=== PATIENT | male | born 1975 | race Caucasian/White ===

== ENCOUNTER → 2020-08-27 10:01 | Outpatient (CLI) | payer BC ==
[~2020-08-27] VITALS: Ht 182.9 cm; Wt 90.7 kg
[~2020-08-27 10:01] MED LIST: ALBUTEROL SULF8.5 GM INH; GABAPENTIN100 MG PO; HYDROCODON-ACE1 EA10 PO; HYDROCODON-ACE1 EAC7 PO; MEDROL DOSE PACK4 MG PO; MOBIC7.5 MG PO; ZANAFLEX6 MG PO
[2020-08-27 11:04] LABS: BASOPHILS 0.4 % (0-2); EOSINOPHILS 3.1 % (0-7); HEMATOCRIT 50.2 % (42.0-54.0); HEMOGLOBIN 17.6 g/dL (13.5-17.5); IMMATURE GRANULOCYTES 0.4 % (0-5); LYMPHOCYTES 24.9 % (15-50); MCH 35.1 pg (26.0-34.0); MCHC 35.1 g/dL (31.0-37.0); MCV 100.2 fL (80.0-100.0); MEAN PLATELET VOLUME 10.1 fL (7.4-10.4); MONOCYTES 11.9 % (2-11); NEUTROPHIL ABS# 2.85 10x3/uL (1.78-5.38); NEUTROPHILS 59.3 % (40-80); PLATELET COUNT 85 10x3/uL (130-400); RBC 5.01 10x6/uL (4.20-6.10); RDW 12.4 % (11.5-14.5); WBC 4.8 10x3/uL (4.8-10.8)
[2020-08-27 11:53] LABS: PLATELET ESTIMATE DECREASED
[2020-09-23 10:33] VITALS: Ht 182.9 cm; Wt 90.7 kg
== END ==
LOC: D.PAN 10:01 → D.OPS 08-30 07:00 → EDSTATUS 08-30 07:00
PROVIDERS: Anesthesiology; ATTEND Neurological Surgery
DX: M54.12 Radiculopathy, cervical region (principal)

== ENCOUNTER 2020-09-23 05:15 | Day surgery (SDC) | payer MEDICAID ==
[~2020-09-23] VITALS: Ht 182.9 cm; Wt 90.5 kg
[2020-09-23] VITALS (11 sets, daily range): BP systolic 132–160; BP diastolic 60–111; Ht 182.9 cm; Wt 90.5 kg
--- NOTE | ~2020-09-23 | OP ---
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 PROCEDURE: Anterior cervical discectomy and fusion at C6-7 with removal of osteophytes, [facility] anterior cervical plate and screws. DESCRIPTION TECHNIQUE: After induction of general endotracheal anesthesia, the patient was positioned supine on the operating table. Neck was prepped and draped in the usual sterile fashion. Fluoroscopic x-ray and Westbrook dissector localized the C6-C7 interspace. After infiltration of 1:100,000 epinephrine with 1% lidocaine, a transverse skin incision was carried out from the midline to the sternocleidomastoid muscle. The platysma was divided with Bovie cautery. Using blunt and sharp dissection with Metzenbaum scissors, I proceeded in the avascular plane medial to the carotid sheath. The C6-C7 interspace was identified with a fluoroscopic x-ray and a spinal needle. The longus colli muscles were elevated from the bodies of C6 and C7. The self-retaining retractors placed deep to the longus colli muscles. Jackson distracting pins were placed in the bodies of C6 and C7. Next, the annulus was incised with a #11 blade. A series of curettes and pituitary rongeurs were used to remove the cartilaginous portions of the endplate at C6 and C7. Posteriorly, osteophytes were drilled away under microscopic illumination with the Midas Anderson drill. The posterior longitudinal ligament was removed with Cloward rongeurs. Following this, the dura was decompressed as well. A PEEK interbody cage was placed in the disc space under distraction. Prior to this, it was filled with Kelsey bone allograft. A separate [facility] anterior cervical plate and screws was used to span the C6-C7 interspace. Locking cams were tightened down over the screw heads and good position of the hardware was confirmed with fluoroscopic x-ray. Meticulous hemostasis was maintained throughout the wound and the wound was irrigated with copious amounts of Ancef irrigant solution. The platysma and subdermal layer closed with interrupted 4-0 Vicryl suture. The skin was reapproximated with Steri-Strips and benzoin. A sterile dressing was applied to the wound. The patient was awakened in good condition and taken to recovery. All counts were reported as correct. Estimated blood loss was minimal. TRANSINT:[id number] Voice Confirmation ID: [id number] DOCUMENT ID: [id number] OPERATIVE REPORT [id number] AKASH GUERRERO JOHN MD CC: [id number] DICTATION DATE: 10/05/20 1148 [employer] BONDER: 10/05/20 1210 [facility] 09/24/[address] [address]
[~2020-09-23 05:15] MED LIST changes: -HYDROCODON-ACE1 EA10 PO; -MEDROL DOSE PACK4 MG PO
--- NOTE | 2020-09-23 10:07 | NUR ---
PT PAIN DECREASED AFTER 1 MG OF DIL AND 25 OF DEM. PT RESTING COMFORTABLY. VSS. PT ON 3 L AFTER NARCOTICS.
--- NOTE | 2020-09-23 10:41 | NUR ---
TO ROOM 2205 FROM PACU VIA BED. ASSESSMENT PER FLOW SHEET. PATIEENT STATES NO PAIN IN NECK,BUT COMPLAINS OF RIGHT UPPER ARM PAIN. SCD'S PLACED ON PATIENT. IS INSTRUCTED. CALL LIGHT IN REACH
--- NOTE | 2020-09-23 17:14 | NUR ---
TOLERATING CLEAR LIQUID DIET.PATIENT WITHOUT DISTRESS.PAIN 4/10 SCLAE TO RIGHT UPPER ARM AND NECK
[2020-09-24] VITALS: BP 118/69; BP 166/113
--- NOTE | 2020-09-24 00:49 | NUR ---
I have reviewed this patient and I concur with the Shift Assessment completed by the Licensed Practical Nurse today this shift.
--- NOTE | 2020-09-24 02:40 | NUR ---
PT BP 177/100 RECHECK WITHIN 1 HOUR 166/103 DECADRON MED ON HOLD AT THE MOMENT UN BP LOWER WILL CONT TO MONITOR.
[2020-09-24 04:00] VITALS: BP 161/102
--- NOTE | 2020-09-24 07:30 | NUR ---
ALERT AND ORIENTED. ASSESSMENT COMPLETE. DENIES NEEDS. BED LOW. CALL STALEY AND PERSONAL ITEMS IN REACH. WILL CONTINUE TO MONITOR.
--- NOTE | 2020-09-24 07:42 | NUR ---
PATIENT'S IV CAME UNHOOKED D/T PATIENT ACCIDENTALLY GO IV CAUGHT ON BED. BLOOD BACKFLOWING THROUGH IV. PATIENT STARTED SWEATING AND THROWING UP. BP 196/100. HAVING A LOT OF ANXIETY. STATES TAKES CELEXA PRN AT HOME. CALLED DR CADE AND LEFT VOICEMAIL. WAITING CALL BACK.
[2020-09-24] MEDS ORDERED: HYDROCODON-ACE1 EA10 PO (08:45)
[2020-09-24] MEDS ORDERED: MEDROL DOSE PACK4 MG PO (08:45)
--- NOTE | 2020-09-24 09:00 | NUR ---
DARREL, WITH DR CADE ON UNIT. NOTIFIED OF PATIENT'S BP AND ANXIETY. STATES "I JUST WENT IN THERE AND HE LOOKED FINE TO ME. I'M PUTTING IN A DISCHARGE. HE CAN GO HOME AND TAKE HIS MEDICATION."
[2020-09-24 09:11] VITALS: BP 192/105
--- NOTE | 2020-09-24 09:13 | NUR ---
PATIENT'S BP STILL 192/105. SPOKE WITH BILL WITH DR CADE WHO STATES "OK I WILL ORDER SOMETHING." WAITING ORDERS.
--- NOTE | 2020-09-24 09:24 | NUR ---
SPOKE WITH BILL WITH DR CADE AGAIN. STATES DOES NOT WANT TO GIVE BP MEDS SINCE PATIENT DOES NOT TAKE BP MEDS AT HOME. ORDER GIVEN FOR ONE TIME ATIVAN. STATES OK TO DC PATIENT AFTER THAT. STATES PATIENT'S BP WILL BE BETTER WHEN HE GETS HOME AND OUT OF HOSPITAL.
--- NOTE | 2020-09-24 09:45 | NUR ---
ONE TIME DOSE ATIVAN GIVEN TO PATIENT. IV REMOVED FROM LFA WITH TIP INTACT. PATIENT CALLED MOM TO COME MANAGER OF COMMUNITY RELATIONS. GETTING DRESSED NOW.
--- NOTE | 2020-09-24 09:56 | NUR ---
DC EDUCATION PROVIDED BOTH WRITTEN AND VERBAL. VERBALIZED UNDERSTANDING. DENIES FURTHER QUESTIONS. RX GIVEN FOR PRN NORCO. COPY OF RX SIGNED BY PATIENT. DRESSED AND WAITING RIDE.
--- NOTE | 2020-09-24 11:55 | NUR ---
PATIENT DC HOME WITH ALL BELONGINGS.
== END 2020-09-24 11:56 | disposition home or self-care (01) ==
LOC: D.OPS 05:15 → D.MS 10:20 → D.OPS 09-24 11:56
PROVIDERS: ATTEND Neurological Surgery
DX: M25.78 Osteophyte, vertebrae (principal); M50.123 Cervical disc disorder at C6-C7 level with radiculopathy; M53.82 Other specified dorsopathies, cervical region